=== PATIENT | female | born 1980 ===

== ENCOUNTER 2016-12-10 12:22 | Emergency (ER) | payer MEDICAID ==
[2016-12-10 13:41] LABS: BASO # 0.1 K/uL (0.0-0.2); BASO % 0.8 % (0.0-2.0); EOS # 0.2 K/uL (0.0-0.7); EOS % 2.6 % (0.0-4.0); HEMATOCRIT 40.3 % (34.0-47.0); LYMPH # 2.6 K/uL (1.0-4.3); MEAN CELL VOLUME 91.3 fL (81.0-99.0); MEAN CORPUSCULAR HEMOGLOBIN 30.6 pg (27.0-31.0); MEAN CORPUSCULAR HGB CONC 33.5 g/dL (33.0-37.0); MONO # 0.7 K/uL (0.0-0.8); MONO % 8.2 % (0.0-10.0); RED CELL DISTRIBUTION WIDTH 13.9 % (11.5-14.5); WHITE BLOOD COUNT 8.8 K/uL (4.8-10.8)
[2016-12-10 13:47] LABS: RBC URINE 161 /hpf (0-3); URINE BILIRUBIN NEGATIVE (NEGATIVE); URINE BLOOD 3+ (NEGATIVE); URINE COLOR Yellow (YELLOW); URINE GLUCOSE (UA) NORMAL (Normal); URINE KETONE NEGATIVE (NEGATIVE); URINE LEUKOCYTE ESTERASE TRACE Leu/uL (Negative); URINE PROTEIN NEGATIVE (NEGATIVE); URINE UROBILINOGEN NORMAL mg/dL (0.2-1.0); WBC URINE 12 /hpf (0-5)
[2016-12-10 13:48] LABS: CHLORIDE 100 mmol/L (98-107)
[2016-12-10 13:49] LABS: SODIUM 136 mmol/L (132-148)
[2016-12-10 13:52] LABS: ALKALINE PHOSPHATASE 68 U/L (38-126); ALT/SGPT 72 U/L (9-52); AST/SGOT 31 U/L (14-36); BILIRUBIN,TOTAL 0.6 mg/dL (0.2-1.3); BLOOD UREA NITROGEN 9 mg/dL (7-17); CALCIUM 9.5 mg/dl (8.6-10.4); CARBON DIOXIDE 23 mmol/L (22-30); GFR AFRICAN-AMERICAN > 60; GLUCOSE,RANDOM 83 mg/dL (65-105); TOTAL PROTEIN 9.1 g/dL (6.3-8.3)
[2016-12-10 14:15] LABS: POTASSIUM 3.7 mmol/L (3.6-5.2)
--- NOTE | 2016-12-10 14:25 | C.PDOC ---
History Of Present Illness 36 year old female presents to the ED complaining of vaginal spotting for approximately 2 days. Patient LMP was on 10/05/2016. Patient denies nausea, vomit , dysuria, hematuria, or vaginal discrage. P: 1021 Chief Complaint (Nursing): Female Genitourinary History Per: Patient History/Exam Limitations: no limitations Onset/Duration Of Symptoms: Days Current Symptoms Are (Timing): Still Present Associated Symptoms: denies: Nausea, Vomiting, Urinary Symptoms Recent travel outside of the [place]: No Additional History Per: Patient Abnormal Vaginal Bleeding: Yes Last Menstral Period: 10/05/2016 Past Medical History Reviewed: Historical Data, Nursing Documentation, Vital Signs Vital Signs: Last Vital Signs Temp 98.2 F 12/10/16 15:11 Pulse 77 12/10/16 15:11 Resp 16 12/10/16 15:11 BP 119/82 12/10/16 15:11 Pulse Ox 100 12/10/16 15:34 - Medical History PMH: No Chronic Diseases Surgical History: No Surg Hx Family History: States: Unknown Family Hx - Social History Hx Alcohol Use: No Hx Substance Use: No - Immunization History Hx Tetanus Toxoid Vaccination: No Hx Influenza Vaccination: No Hx Pneumococcal Vaccination: No Review Of Systems Constitutional: Negative for: Fever, Chills Gastrointestinal: Negative for: Nausea, Vomiting Genitourinary: Negative for: Dysuria, Hematuria, Vaginal Discharge Physical Exam - Physical Exam Appears: Non-toxic, No Acute Distress Skin: Normal Color, Warm, Dry Head: Atraumatic, Normacephalic Oral Mucosa: Moist Neck: Normal, Supple Gastrointestinal/Abdominal: Soft, No Tenderness, No Guarding, No Rebound Back: Normal Inspection Pelvic: No Vaginal Discharge Neurological/Psych: Oriented x3, Normal Speech, Normal Cognition ED Course And Treatment - Laboratory Results Result Diagrams: 12/10/16 13:29 12/10/16 13:29 O2 Sat by Pulse Oximetry: 100 (On RA) Pulse Ox Interpretation: Normal - CT Scan/US Obstetrics US Other Rad Studies (CT/US): Interpreted By Me, Read By Radiologist, Radiology Report Reviewed CT/US Interpretation: FINDINGS: UTERUS: Gestational sac: Single intrauterine gestation. The gestational sac has irregular border. Heart rate: 0 bpm. age (Ultrasound estimated): 6 weeks 6 days +/- 0 weeks 3 days. Janie- gestational hemorrhage: None. Date of delivery (Ultrasound estimated) : 2017. Uterus measures 13 x 6.3 x 5.9 cm. Normal in size and appearance. CERVIX : Long and closed. No cervical abnormality seen. RIGHT OVARY: Measures 3.1 x 2.1 x 2.55 cm. No mass lesion. Normal flow. LEFT OVARY: Measures 2.9 x 1.8 x 2.4 cm. No solid mass. Normal flow. FREE FLUID: None. OTHER FINDINGS: None. IMPRESSION: Intrauterine gestational sac contains pole yolk sac. No heart activity is appreciated in this exam. The gestational sac has irregular border. The possibility of demise should be considered. Correlation with multiple beta HCG levels is suggested. Medical Decision Making Medical Decision Making: Impression : 36 y/o female presents with vaginal spotting for the past 2 days. Plan : * Blood work, UA ordered * US 1st trimester ordered * Urine culture collected. Disposition - Disposition Referrals: [facility] [Outside] [facility] [Outside] Disposition: HOME/ ROUTINE Disposition Time: 15:30 Condition: GOOD Additional Instructions: Thank you for letting us take care of you today. Your provider was Dr. Mills. You were treated for possible miscarriage. The emergency medical care you received today was directed at your acute symptoms. If you were prescribed any medication, please fill it and take as directed. It may take several days for your symptoms to resolve. Return to the Emergency Department if your symptoms worsen, do not improve, or if you have any other problems. Please contact your doctor or call one of the physicians/clinics you have been referred to that are listed on the Patient Visit Information form that is included in your discharge packet. Bring any paperwork you were given at discharge with you along with any medications you are taking to your follow up visit. Our treatment cannot replace ongoing medical care by a primary care provider (PCP) outside of the emergency department. Thank you for allowing the [facility] team to be part of your care today. Please return to the emergency room in 2 days for repeat blood work and possibly another ultrasound. Instructions: Threatened Miscarriage (ED) Forms: [employer] (Romanian) - Clinical Impression Clinical Impression: Threatened - Scribe Statement The provider has reviewed the documentation as recorded by the Scribe Danial Kumar All medical record entries made by the Scribe were at my direction and personally dictated by me. I have reviewed the chart and agree that the record accurately reflects my personal performance of the history, physical exam, medical decision making, and the department course for this patient. I have also personally directed, reviewed, and agree with the discharge instructions and disposition.
[2016-12-10 15:12] VITALS: BP 119/82; PULSE 77; RESP 16; TEMP 98.2
--- NOTE | 2016-12-10 15:28 | US ---
PROCEDURE: OB Pelvic Ultrasound HISTORY: vaginal spotting - LMP 10/05 COMPARISON: None available. FINDINGS: UTERUS: Gestational sac: Single intrauterine gestation. The gestational sac has irregular border Heart rate: 0 bpm. age (Ultrasound estimated): 6 weeks 6 days +/- 0 weeks 3 days. Janie-gestational hemorrhage: None. Date of delivery (Ultrasound estimated) : 07/30/2017 Uterus measures 13 x 6.3 x 5.9 cm. Normal in size and appearance. CERVIX: Long and closed. No cervical abnormality seen. RIGHT OVARY: Measures 3.1 x 2.1 x 2.55 cm. No mass lesion. Normal flow. LEFT OVARY: Measures 2.9 x 1.8 x 2.4 cm. No solid mass. Normal flow. FREE FLUID: None. OTHER FINDINGS: None. IMPRESSION: Intrauterine gestational sac contains pole yolk sac. No heart activity is appreciated in this exam. The gestational sac has irregular border. The possibility of demise should be considered. Correlation with multiple beta HCG levels is suggested.
[2016-12-10 15:34] VITALS: O2SAT 100
== END 2016-12-10 16:01 | disposition home or self-care (01) ==
LOC: C.ER 12:22
DX: O20.0 Threatened abortion (principal); Z3A.01 Less than 8 weeks gestation of pregnancy

== ENCOUNTER 2016-12-14 17:11 | Emergency (ER) | payer MEDICAID ==
[2016-12-14 17:17] VITALS: RESP 18; O2SAT 99
[2016-12-14 18:26] VITALS: BP 114/80; PULSE 80; TEMP 97.9
--- NOTE | 2016-12-14 18:50 | C.PDOC ---
History Of Present Illness 36 year old female presents to the ED requesting a repeat Beta. Patient reports she had been having vaginal bleeding for four days which has improved. She denies any abdominal pain, fever, nausea, vomiting, or diarrhea. Time Seen by Provider: 12/14/16 17:22 Chief Complaint (Nursing): Medical Clearance History Per: Patient History/Exam Limitations: no limitations Onset/Duration Of Symptoms: Days (4 days ) Current Symptoms Are (Timing): Still Present Reports Recently: Seen In ED Recent travel outside of the [place]: No Additional History Per: Prior Records Past Medical History Reviewed: Historical Data, Nursing Documentation, Vital Signs Vital Signs: Last Vital Signs Temp 97.9 F 12/14/16 18:25 Pulse 80 12/14/16 18:25 Resp 18 12/14/16 18:25 BP 114/80 12/14/16 18:25 Pulse Ox 99 12/14/16 20:47 Family History: States: Unknown Family Hx - Social History Hx Alcohol Use: No Hx Substance Use: No - Immunization History Hx Tetanus Toxoid Vaccination: No Hx Influenza Vaccination: No Hx Pneumococcal Vaccination: No Review Of Systems Constitutional: Negative for: Fever Gastrointestinal: Negative for: Nausea, Vomiting, Abdominal Pain, Diarrhea Genitourinary: Positive for: Vaginal Bleeding. Negative for: Dysuria, Hematuria Physical Exam - Physical Exam Appears: Non-toxic, No Acute Distress Skin: Warm, Dry Head: Atraumatic, Normacephalic Eye(s): bilateral: Normal Inspection, PERRL, EOMI Oral Mucosa: Moist Neck: Normal ROM, Supple Cardiovascular: Rhythm Regular, No Murmur Respiratory: No Rales, No Rhonchi, No Wheezing, Other (Clear to auscultation bilaterally ) Gastrointestinal/Abdominal: Soft, No Tenderness, No Distention, No Guarding, No Rebound Neurological/Psych: Oriented x3, Normal Motor, Normal Sensation Gait: Steady ED Course And Treatment O2 Sat by Pulse Oximetry: 99 (RA) Pulse Ox Interpretation: Normal Progress Note: Labs were ordered and Beta hCG dropped from 9,000 to 1,000. Case discussed with patient, most likely a spontaneous . Patient's blood type is O+. Disposition - Disposition Referrals: [facility] [Outside] [facility] [Outside] Disposition: HOME/ ROUTINE Disposition Time: 18:48 Condition: FAIR Additional Instructions: Follow up with the medical doctor within 1-2 days. Return if worsened. 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 - Scribe Statement The provider has reviewed the documentation as recorded by the Scribfabio Reyes All medical record entries made by the [employer] were at my direction and personally dictated by me. I have reviewed the chart and agree that the record accurately reflects my personal performance of the history, physical exam, medical decision making, and the department course for this patient. I have also personally directed, reviewed, and agree with the discharge instructions and disposition.
== END 2016-12-14 18:54 | disposition home or self-care (01) ==
LOC: C.ER 17:11
DX: O03.9 Complete or unspecified spontaneous abortion without complication (principal)